=== PATIENT | female | born 1995 | race Caucasian/White ===

== ENCOUNTER 2020-08-18 21:20 | Inpatient (IN) | payer OTHER ==
[~2020-08-18] VITALS: Ht 165.1 cm; Wt 69.4 kg
[2020-08-18] MEDS ORDERED: DICYCLOMINE HCL20 MG PO (21:37)
[2020-08-18] MEDS ORDERED: CIPROFLOXACIN500 MG PO (21:37)
[2020-08-18] MEDS ORDERED: LEVO-T25 MCG PO (21:37)
[2020-08-18] MEDS ORDERED: PANTOPRAZOLE SO20 MG PO (21:37)
== END 2020-08-22 14:13 | disposition home or self-care (01) | DRG 392 ==
LOC: ER 21:20 → SURH 08-19 10:47 → SEC-K 08-19 10:47 → SURH 08-19 20:57
PROVIDERS: ADMIT Surgery; ATTEND Surgery
PROC: BW40ZZZ Ultrasonography of Abdomen (ICD-10-PCS; principal; 2020-08-18)
PROC: BW2GZZZ Computerized Tomography (CT Scan) of Pelvic Region (ICD-10-PCS; 2020-08-19)
PROC: BW21YZZ Computerized Tomography (CT Scan) of Abdomen and Pelvis using Other Contrast (ICD-10-PCS; 2020-08-22)
DX: K52.89 Other specified noninfective gastroenteritis and colitis (principal); E03.8 Other specified hypothyroidism; R10.31 Right lower quadrant pain; Z20.828 Contact with and (suspected) exposure to other viral communicable diseases